=== PATIENT | male | born 1990 | race Caucasian/White ===

== ENCOUNTER 2020-06-16 10:28 | Day surgery (SDC) | payer BC, OTHER ==
[2020-06-12 17:54] VITALS: BMI 28.1
[2020-06-16] MEDS ORDERED: SODIUM CHLORIDE 0.9% P/F 10 ML VIAL IJ ONE ×2 (10:30→10:34)
[2020-06-16] MEDS ORDERED: ceFAZolin SODIUM 1 GM VIAL ONE (10:30)
[2020-06-16] MEDS ORDERED: DEXAMETHASONE SOD PHOSPHATE 4 MG/1 ML VIAL ONE (10:30)
[2020-06-16] MEDS ORDERED: PROPOFOL 20 ML ONE ×2 (10:30)
[2020-06-16] MEDS ORDERED: ROCURONIUM BROMIDE 50 MG/5 ML VIAL ONE (10:31)
[2020-06-16] MEDS ORDERED: LIDOCAINE HCL/PF 2% SDV 5ML VIAL ONE (10:31)
[2020-06-16] MEDS ORDERED: TRANEXAMIC ACID 1000 MG/10 ML VIAL ONE (11:08)
[2020-06-16] MEDS ORDERED: ROPIVACAINE HCL 0.5% 30ML VIAL ONE (11:08)
[2020-06-16] MEDS ORDERED: fentaNYL CITRATE 250 MCG/5 ML VIAL ONE (11:12)
[2020-06-16] MEDS ORDERED: MIDAZOLAM HCL 2 MG/2 ML SINGLE DOSE VIAL ONE ×3 (11:12→15:20)
[2020-06-16] MEDS ORDERED: VANCOMYCIN 1,000 MG VIAL (RESTRICTED TO ID ONLY) ONE (11:14)
[2020-06-16] MEDS ORDERED: ACETAMINOPHEN INJECTION 100 ML IVPB ONE (11:21)
--- NOTE | 2020-06-16 11:26 | HP ---
History & Physical Update - History History: No Change - Physical Physical: No Change - Assessment Assessment: No Change - Plan Plan: No Change
[2020-06-16] MEDS ORDERED: oxyCODONE HCL 5 MG TABLET PO PRN ×2 (11:36)
[2020-06-16] MEDS ORDERED: ONDANSETRON 4 MG/2 ML VIAL IVPUSH PRN (11:36)
[2020-06-16] MEDS ORDERED: LACTATED RINGERS SOLUTION 1,000 ML IV SCH (11:45)
[2020-06-16] MEDS ORDERED: KETAMINE HCL 200 MG/20 ML VIAL ONE (11:54)
[2020-06-16] MEDS ORDERED: ROCURONIUM BROMIDE 50 MG/5 ML SYRINGE ONE ×2 (13:15→14:19)
[2020-06-16] MEDS ORDERED: ONDANSETRON 4 MG/2 ML VIAL ONE (14:16)
[2020-06-16] MEDS ORDERED: NEOSTIGMINE METHYLSULFATE 0.5 MG/ML - 10 ML MDV ONE (14:16)
[2020-06-16] MEDS ORDERED: GLYCOPYRROLATE 0.2 MG/1 ML VIAL ONE ×3 (14:16→15:56)
[2020-06-16] MEDS ORDERED: KETOROLAC TROMETHAMINE 30 MG/1 ML VIAL ONE (14:16)
[2020-06-16] MEDS ORDERED: TRANEXAMIC ACID 1000 MG/10 ML VIAL IVPB ONE (15:23)
[2020-06-16] MEDS ORDERED: traMADol HCL 50 MG TABLET PO PRN ×2 (16:33→16:40)
--- NOTE | 2020-06-16 16:41 | OPR ---
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 Surgeon: Aquiles Odom DO Assistants: Alexander Puri DO Anesthesia: General Anesthesia and Local infiltration analgesic with Ropivicaine: suprascapular nerve, axillary nerve, local superficial field Estimated Blood Loss: 50 mL Drains: None Total IV Fluids: Per anesthesia record Specimens: None Implants: (2) 4.0mm cannulated partially threaded screws ([employer]) Complications: None Disposition: PACU Condition: Hemodynamically stable Indications: Neto Crenshaw presented to us with chronic right shoulder pain and instability that failed conservative measures and two prior instability procedures, including an arthroscopic Bankart repair and open shoulder stabilization procedure. His symptoms, signs, and imaging were consistent with the above noted diagnoses. He ultimately elected to proceed with surgical intervention after discussion of the risks, benefits, alternatives. Given his two prior failed instability surgeries we agreed to proceed with a revision open stabilization with coracoid bone transfer. We discussed risks including but not limited to, bleeding, pain, infection, scarring, damage to neurovascular structures, blood clots, pulmonary embolus, need for additional surgery, incomplete relief of pain, and incomplete return of function. He expressed understanding and wished to proceed. He underwent preoperative medical evaluation clearance and optimization prior to surgery. Procedure Details: He was identified in the preoperative area. The left shoulder was marked as the operative site and consent was completed and confirmed. He was later transferred to the operating room and placed in supine position the operating room. Anesthesia was induced without difficulty. She was repositioned into beach chair with all bony prominences appropriately padded. The neck was in neutral alignment. The upper extremity was prepped and draped in standard sterile fashion. A surgical time-out was performed identifying the correct patient, procedure, and site. Antibiotics were given within 1 hour prior to surgical incision. When began the procedure with incision from the inferior tip of the coracoid approximately 8 cm inferior towards the axillary fold. Sharp dissection was carried out through the subcutaneous tissues. Self-retaining retractors were placed. Subcutaneous flaps were developed. Deltopectoral interval was identified and cephalic vein was also identified, protected, and mobilized laterally. Dense scar tissue and adhesions were encountered deep to this layer. We developed a subdeltoid and subpectoral space, here we identified the coracoid process. Placed retractors superiorly. We divided the clavipectoral fascia lateral to the conjoint tendon and identified the CA ligament. Once self- retaining retractors were placed, we externally rotated the arm visualizing the coracoacromial ligament. We divided this approximately 1 cm from its lateral insertion onto the coracoid. We also divided the coracohumeral ligament inferiorly heading towards the lateral aspect of the coracoid. We then internally rotated the arm and turned our attention to the medial aspect of the coracoid. The pectoralis minor was sharply tenotomized subperiosteally off the medial aspect of the coracoid. We did not extend our incision medial to the tip of the coracoid not to disrupt the vascular supply to the coracoid bone graft. We worked our way along the medial aspect of the coracoid and inferiorly clearing the tissue using a blunt retractor and electrocautery. We found the bend of the coracoid as it turned into the scapular body. We placed a retractor medially to protect the medial structures as well as laterally. We used a curved angle blade 90 degrees to begin our coracoid osteotomy. This began our cut as we cut from medial to lateral and protected the inferior medial structures. We then completed the cut with a curved half-inch osteotome. Sharp edges were then resected with rongeur. We gained control of the coracoid bone block, released the coracohumeral ligament and remaining rotator cuff interval tissue from the lateral aspect of the coracoid and gently divided the tissue inferiorly. We now had obtained both the conjoint tendon as well as the coracoid bone for later transfer into the anterior-inferior scapular neck. We placed this aside under the pectoralis major and turned our attention to exposure of the anterior-inferior glenoid. With self-retaining retractors in place, we externally rotated the arm bringing the subscapularis muscle into view. Dense scar tissue and adhesions were encountered and sutures from his previous subscapularis tenotomy were identified and noted to be intact. We removed the bursal tissue over the subscapularis tendon and divided the subscapularis inline with the muscle fibers at its approximate midpoint through natural raphe. Curved Parra scissor was used to do this and was done sharply extending laterally into the lesser tuberosity insertion. We identified the underlying capsular tissue and dissected the muscular tissue above this and away from capsular tissue. We used a lap sponge and pushed it into the space above the capsule underneath the subscapularis muscle developing a pocket space in front of the anterior glenoid and scapular neck. We then placed anterior glenoid retractor here and blunt Hohmann inferiorly underneath the glenoid. We were able to palpate the axillary nerve and protect it throughout the case. Superior retraction was achieved with appendiceal retractor. We were then able to visualize the anterior capsular tissue that was clearly lax. We used a 15 blade to make a vertical transection of the anterior capsule. We identified the lateral leaflet for later plication. We inserted a Fukuda retractor to retract the humeral head laterally. We resected the anterior-inferior aspect of the capsule with electrocautery as well as prior sutures and suture material. Here we identified an anterior-inferior glenoid bony defect of approximately 20% of the glenoid face that was impacted and crushed in more medially in the anterior scapular neck. We used tanya to freshen the surface of the anterior scapular neck in preparation for receiving the bone graft. We returned our attention to preparation of the coracoid bone graft. Its undersurface was then flattened with the oscillating saw so there was a nice flat bony bed for fixation against the anterior scapular neck. We used a 2.7 drill from a 4-0 cannulated [employer] set and drilled 2 holes through the coracoid bone graft approximately 1 cm apart. The holes were identified with electrocautery on its superior surface and we selected a 34 mm partially threaded screw and placed this through the inferior screw hole. We then used the same drill to drill across the scapular neck as parallel as possible to the glenoid face inferiorly where we felt appropriate position of the graft would be. We again measured this and found a 34 mm screw to be appropriate. The gr aft was then passed through the subscapularis split and inferiorly into the anterior scapular neck. The screw was tightened down and then we used a 2.7 mm drill again in the superior screw through the bone graft through the scapular neck again as parallel as possible to the glenoid face. This screw measured 34 mm and another partially threaded 4-0 cannulated screw was placed through the bone graft into the scapular neck with good fixation. These were tightened down with 2 finger tightness. This achieved excellent fixation of our bone graft as well as fixed our muscle tendon transfer through the subscapularis into the anterior scapular neck. It was flushed with the glenoid face and did not extend prominently. We turned our attention to capsular plication, taking the lateral leaflet of the capsule, bringing it anterosuperiorly and suturing this into the previously cut CA ligament on the lateral aspect of the coracoid bone transfer. This achieved excellent recreation of the anterior capsular tissues. We then closed the subscapularis split laterally with #2 Fiberwire interrupted [id number] stitches. There was excellent fixation of both the bone graft and the tendon inferiorly. The shoulder was stable. There was no undue tension on the brachial plexus or nerves. We closed the wound in a layered fashion. The deltopectoral interval was closed with running #1 Ethibond stitch followed by buried 0 and 2-0 Vicryl deep tissues in an interrupted fashion. We then closed the skin with 3-0 Monocryl and Dermabond. The shoulder was sterilely dressed and the arm was placed in a shoulder immobilizer. A 22 modifier is being requested for this case as it was significantly more difficult case than standard anterior capsulorrhaphy with coracoid bone transfer and conjoint tendon transfer. Description of increased surgical complexity: This instability case was particularly difficult, technically challenging, and time- consuming due to the revision nature of the procedure. Given additional complexity due to the adhesions to the glenoid and subscapularis, and the poor quality of the tissue, additional time was needed for mobilization and repair techniques. I would estimate this is approximately 2 times as difficult, time- consuming, and technically demanding than typical shoulder instability cases. This is being documented for insurance purposes only and reflects no inherent difficulties with this case whatsoever. Attestation for first breaker feeder: Dr. Alexander Puri acted as the first breaker feeder. There was no qualified resident or physician unit assistant available to do so. Post-operative Details: I spoke with the family and patient regarding the operation after surgery. Postoperative examination showed a normal neurovascular exam. Postoperative rehabilitation: [facility]arjet Protocol. He will remain in a shoulder immobilizer for 3-4 weeks. Early passive range of motion okay with limit of forward elevation 90 and external rotation 30 and advance as tolerated.
[2020-06-16 17:35] VITALS: PULSE 77; TEMP 98.2
[2020-06-16 17:53] VITALS: BP 108/64
== END 2020-06-16 18:01 | disposition home or self-care (01) ==
LOC: FASU 10:28
PROVIDERS: ATTEND Orthopaedic Surgery
PROC: 0RQJ0ZZ Repair Right Shoulder Joint, Open Approach (ICD-10-PCS; principal; 2020-06-16 13:12)
DX: M25.311 Other instability, right shoulder (principal)
CPT/HCPCS: 73030-TC-RT-FY; 94760; J0131

== ENCOUNTER 2021-10-12 04:23 | Day surgery (SDC) | payer OTHER ==
[2021-09-27 09:00] VITALS: BMI 29.6
[~2021-10-12 04:23] MED LIST: BUPIVACAINE HCL/PF 0.75% 10 ML VIAL NR ONE; IOHEXOL 180 MG/1 ML ML IJ ONE
[2021-10-12] MEDS ORDERED: LIDOCAINE HCL/PF 1% SDV 5ML VIAL ONE (07:13)
[2021-10-12] MEDS ORDERED: BUPIVACAINE HCL/PF 0.25% (2.5MG/ML) 10 ML VIAL ONE (07:13)
[2021-10-12] MEDS ORDERED: DEXAMETHASONE SOD PHOSPHATE 10 MG/1 ML VIAL ONE (07:13)
[2021-10-12] MEDS ORDERED: BUPIVACAINE HCL/PF 0.5% (5MG/ML) 10 ML VIAL ONE (07:13)
[2021-10-12] MEDS ORDERED: BUPIVACAINE HCL/PF 0.75% 10 ML VIAL ONE (07:14)
[2021-10-12] MEDS ORDERED: LIDOCAINE HCL/PF 2% SDV 5ML VIAL ONE (07:25)
[2021-10-12] MEDS ORDERED: SODIUM CHLORIDE 0.9% P/F 10 ML VIAL IJ ONE (07:25)
[2021-10-12] MEDS ORDERED: LIDOCAINE 1% P/F 10 MG/ML VIAL INF ONE (08:50)
[2021-10-12 09:19] VITALS: BP 112/79; PULSE 72; TEMP 98.1
== END 2021-10-12 09:40 | disposition home or self-care (01) ==
LOC: JASU-SURG 04:23
PROVIDERS: ATTEND Pain Medicine Pain Medicine
PROC: BR16YZZ Fluoroscopy of Lumbar Facet Joint(s) using Other Contrast (ICD-10-PCS; 2021-10-12)
PROC: 3E0T3BZ Introduction of Anesthetic Agent into Peripheral Nerves and Plexi, Percutaneous Approach (ICD-10-PCS; principal; 2021-10-12 08:30)
DX: M47.816 Spondylosis without myelopathy or radiculopathy, lumbar region (principal)
CPT/HCPCS: 76000-TC-FY; J1100

== ENCOUNTER 2022-10-19 14:42 | Inpatient (IN) | payer OTHER ==
[2022-10-19] MEDS ORDERED: DALBAVANCIN HCL 1,500 MG in DEXTROSE 5%-WATER - 500 ML IVPB ONE (20:21)
[2022-10-19] MEDS ORDERED: DALBAVANCIN HCL 500 MG VIAL (RESTRICTED TO ID ONLY) IVPB ONE (21:25)
[2022-10-19 22:18] LABS: BASO % 0.7 % (0-2.0); EOS % 4.5 % (0-4.5); HEMATOCRIT 33.2 % (35.4-49); HEMOGLOBIN 11.1 GM/dL (11.7-16.9); LYMPH % 19.3 % (8-40); MCH 28.1 pg (25.7-33.7); MCHC 33.4 g/dl (32.0-35.9); MEAN CELL VOLUME 84.1 fl (80-96); NEUT % 63.5 % (42.8-82.8); PLATELET COUNT 297 10^3/uL (134-434); RBC 3.95 M/mm3 (4.00-5.60); RDW 13.5 % (11.9-15.9); WHITE BLOOD COUNT 7.3 K/mm3 (4.0-10.0)
[2022-10-19 22:19] LABS: INR 1.47 (0.83-1.09)
[2022-10-19 22:32] LABS: CALCIUM 9.1 mg/dL (8.5-10.1)
[2022-10-19 22:33] LABS: ALBUMIN 3.4 g/dl (3.4-5.0); BLOOD UREA NITROGEN 9.8 mg/dL (7-18)
[2022-10-19 22:36] LABS: CREATININE 0.8 mg/dL (0.55-1.3)
[2022-10-19 22:38] LABS: BILIRUBIN,TOTAL 0.2 mg/dL (0.2-1)
[2022-10-19 23:06] LABS: ERYTHROCYTE SEDIMENTATION RATE 67 mm/hr (0-10)
[2022-10-20] MEDS ORDERED: ACETAMINOPHEN 325 MG TABLET (FP) PO PRN (04:47)
[2022-10-20] MEDS ORDERED: ENOXAPARIN NA (PORCINE) 40 MG/0.4 ML DISP.SYRIN SQ ONE (10:56)
[2022-10-20] MEDS: ENOXAPARIN NA (PORCINE) 40 MG/0.4 ML DISP.SYRIN SQ SCH (11:00)
[2022-10-21] MEDS ORDERED: ENOXAPARIN NA (PORCINE) 40 MG/0.4 ML DISP.SYRIN SQ ONE (09:18)
[2022-10-21 09:25] LABS: BASO % 0.6 % (0-2.0); EOS % 3.1 % (0-4.5); HEMATOCRIT 35.2 % (35.4-49); HEMOGLOBIN 11.5 GM/dL (11.7-16.9); LYMPH % 24.3 % (8-40); MCH 27.8 pg (25.7-33.7); MCHC 32.8 g/dl (32.0-35.9); MEAN CELL VOLUME 84.7 fl (80-96); MEAN PLT VOLUME 6.8 fl (7.5-11.1); MONO % 14.2 % (3.8-10.2); NEUT % 57.8 % (42.8-82.8); PLATELET COUNT 324 10^3/uL (134-434); RBC 4.15 M/mm3 (4.00-5.60); RDW 13.7 % (11.9-15.9); WHITE BLOOD COUNT 7.4 K/mm3 (4.0-10.0)
[2022-10-21] MEDS: ENOXAPARIN NA (PORCINE) 40 MG/0.4 ML DISP.SYRIN SQ SCH (09:25)
[2022-10-21 10:04] LABS: BLOOD UREA NITROGEN 7.4 mg/dL (7-18)
[2022-10-21 10:08] LABS: TOT PROT 6.7 g/dl (6.4-8.2)
[2022-10-21 10:09] LABS: BILIRUBIN,TOTAL 1.3 mg/dL (0.2-1)
[2022-10-21] MEDS ORDERED: ACETAMINOPHEN 325 MG TABLET (FP) ONE (11:20)
[2022-10-21 13:31] VITALS: BMI 25.9
[2022-10-21] MEDS: CEFTRIAXONE 1 GM in DEXTROSE 5%-WATER - 50 ML IVPB SCH (16:33)
[2022-10-22] MEDS: NAPROXEN 500 MG TABLET PO PRN (03:44)
[2022-10-22] MEDS: CEFTRIAXONE 1 GM in DEXTROSE 5%-WATER - 50 ML IVPB SCH (09:37)
[2022-10-22] MEDS: ENOXAPARIN NA (PORCINE) 40 MG/0.4 ML DISP.SYRIN SQ SCH (09:37)
[2022-10-22] MEDS: PIPERACILLIN/TAZOB 3.375 GM 3.375 GM in DEXTROSE 5%-WATER - 50 ML IVPB SCH ×2 (15:05→17:18)
[2022-10-23] MEDS: PIPERACILLIN/TAZOB 3.375 GM 3.375 GM in DEXTROSE 5%-WATER - 50 ML IVPB SCH ×5 (02:10→22:58)
[2022-10-23] MEDS: ENOXAPARIN NA (PORCINE) 40 MG/0.4 ML DISP.SYRIN SQ SCH (11:15)
[2022-10-23] MEDS: NAPROXEN 500 MG TABLET PO PRN (11:16)
[2022-10-23] MEDS: GABAPENTIN 300 MG CAPSULE PO SCH ×2 (14:07→22:59)
[2022-10-23] MEDS: LEVOTHYROXINE NA 200 MCG TABLET PO SCH (15:29)
[2022-10-23] MEDS: traZODone HCL 100 MG TABLET (FP) PO SCH (22:59)
[2022-10-24] MEDS: PIPERACILLIN/TAZOB 3.375 GM 3.375 GM in DEXTROSE 5%-WATER - 50 ML IVPB SCH ×4 (06:50→22:29)
[2022-10-24] MEDS: ENOXAPARIN NA (PORCINE) 40 MG/0.4 ML DISP.SYRIN SQ SCH (11:14)
[2022-10-24] MEDS: GABAPENTIN 300 MG CAPSULE PO SCH ×2 (11:14→21:32)
[2022-10-24] MEDS: NAPROXEN 500 MG TABLET PO PRN (11:14)
[2022-10-24 11:17] LABS: BASO % 1.3 % (0-2.0); EOS % 10.7 % (0-4.5); HEMATOCRIT 30.3 % (35.4-49); LYMPH % 35.8 % (8-40); MCH 28.4 pg (25.7-33.7); MCHC 33.1 g/dl (32.0-35.9); MEAN CELL VOLUME 85.8 fl (80-96); MEAN PLT VOLUME 6.3 fl (7.5-11.1); MONO % 5.7 % (3.8-10.2); NEUT % 46.5 % (42.8-82.8); PLATELET COUNT 383 10^3/uL (134-434); RBC 3.53 M/mm3 (4.00-5.60); RDW 13.7 % (11.9-15.9); WHITE BLOOD COUNT 6.5 K/mm3 (4.0-10.0)
[2022-10-24] MEDS: LEVOTHYROXINE NA 200 MCG TABLET PO SCH (11:30)
[2022-10-24 11:39] LABS: CALCIUM 8.7 mg/dL (8.5-10.1)
[2022-10-24 11:40] LABS: ALBUMIN 2.9 g/dl (3.4-5.0); BLOOD UREA NITROGEN 10.3 mg/dL (7-18)
[2022-10-24 11:43] LABS: CREATININE 0.9 mg/dL (0.55-1.3)
[2022-10-24 11:45] LABS: BILIRUBIN,TOTAL 0.6 mg/dL (0.2-1); TOT PROT 6.4 g/dl (6.4-8.2)
[2022-10-24] MEDS: traZODone HCL 100 MG TABLET (FP) PO SCH (21:32)
[2022-10-25] MEDS: PIPERACILLIN/TAZOB 3.375 GM 3.375 GM in DEXTROSE 5%-WATER - 50 ML IVPB SCH ×3 (06:45→23:37)
[2022-10-25] MEDS: LEVOTHYROXINE NA 100 MCG TABLET (FP) PO SCH (06:45)
[2022-10-25 07:07] LABS: COCAINE QUALITATIVE URINE Positive ng/mL (Cutoff=300); MARIJUANA QL URINE CANNABINOID Negative ng/mL (Cutoff=50); METHADONE,QUALITATIVE URINE Negative ng/mL (Cutoff=300); OPIATES QL URINE Positive ng/mL (Cutoff=300); PHENCYCLIDINE,QUAL URINE Negative ng/mL (Cutoff=25); PROPOXYPHENE QL URINE Negative ng/mL (Cutoff=300); URINE AMPHETAMINES Negative ng/mL (Cutoff=1000)
[2022-10-25] MEDS: ENOXAPARIN NA (PORCINE) 40 MG/0.4 ML DISP.SYRIN SQ SCH (09:58)
[2022-10-25] MEDS: GABAPENTIN 300 MG CAPSULE PO SCH ×2 (09:58→22:26)
[2022-10-25 10:36] LABS: EOS % 8.1 % (0-4.5); HEMATOCRIT 31.7 % (35.4-49); HEMOGLOBIN 10.8 GM/dL (11.7-16.9); LYMPH % 29.6 % (8-40); MCH 28.8 pg (25.7-33.7); MEAN CELL VOLUME 84.8 fl (80-96); MEAN PLT VOLUME 6.2 fl (7.5-11.1); MONO % 6.4 % (3.8-10.2); NEUT % 54.9 % (42.8-82.8); PLATELET COUNT 365 10^3/uL (134-434); RBC 3.74 M/mm3 (4.00-5.60); RDW 13.8 % (11.9-15.9); WHITE BLOOD COUNT 5.8 K/mm3 (4.0-10.0)
[2022-10-25 11:12] LABS: BLOOD UREA NITROGEN 11.6 mg/dL (7-18); CALCIUM 8.9 mg/dL (8.5-10.1)
[2022-10-25 11:16] LABS: CREATININE 0.8 mg/dL (0.55-1.3)
[2022-10-25] MEDS: traZODone HCL 100 MG TABLET (FP) PO SCH (22:26)
[2022-10-26 01:03] VITALS: RESP 20
[2022-10-26] MEDS: LEVOTHYROXINE NA 100 MCG TABLET (FP) PO SCH (06:36)
[2022-10-26] MEDS: PIPERACILLIN/TAZOB 3.375 GM 3.375 GM in DEXTROSE 5%-WATER - 50 ML IVPB SCH (06:37)
[2022-10-26 07:04] VITALS: BP 99/62; PULSE 57; TEMP 97.6
[2022-10-26 11:04] LABS: HEMATOCRIT 33.1 % (35.4-49); HEMOGLOBIN 10.9 GM/dL (11.7-16.9); LYMPH % 27.7 % (8-40); MCHC 32.9 g/dl (32.0-35.9); MEAN PLT VOLUME 6.5 fl (7.5-11.1); MONO % 6.1 % (3.8-10.2); NEUT % 59.2 % (42.8-82.8); PLATELET COUNT 393 10^3/uL (134-434); RDW 13.6 % (11.9-15.9); WHITE BLOOD COUNT 6.1 K/mm3 (4.0-10.0)
[2022-10-26 12:38] LABS: CHLORIDE 108 mmol/L (98-107); SODIUM 146 mmol/L (136-145)
[2022-10-26 12:40] LABS: CALCIUM 8.9 mg/dL (8.5-10.1)
[2022-10-26 12:41] LABS: ANION GAP 6 MMOL/L (8-16); BLOOD UREA NITROGEN 11.2 mg/dL (7-18); CO2 32 mmol/L (21-32); MAGNESIUM 2.3 mg/dL (1.8-2.4)
[2022-10-26 12:42] LABS: GLUCOSE,RANDOM 72 mg/dL (74-106)
[2022-10-26 12:44] LABS: CREATININE 0.9 mg/dL (0.55-1.3); SGOT/AST 25 U/L (15-37); SGPT/ALT 25 U/L (13-61)
[2022-10-26 12:46] LABS: BILIRUBIN,TOTAL < 0.1 mg/dL (0.2-1); TOT PROT 6.6 g/dl (6.4-8.2)
[2022-10-26 12:47] LABS: ALK PHOS 75 U/L (45-117)
[2022-10-26] MEDS: ENOXAPARIN NA (PORCINE) 40 MG/0.4 ML DISP.SYRIN SQ SCH (13:07)
[2022-10-26] MEDS: GABAPENTIN 300 MG CAPSULE PO SCH (13:07)
== END 2022-10-26 12:19 | disposition left against medical advice (07) | DRG 383 ==
LOC: JER 14:42 → JERBED 23:22 → J5S 10-21 12:01
PROVIDERS: ADMIT Internal Medicine; ATTEND Internal Medicine
DX: L03.114 Cellulitis of left upper limb (principal); F11.20 Opioid dependence, uncomplicated; F14.10 Cocaine abuse, uncomplicated; F41.8 Other specified anxiety disorders; L03.113 Cellulitis of right upper limb; E03.9 Hypothyroidism, unspecified; F17.210 Nicotine dependence, cigarettes, uncomplicated
CPT/HCPCS: 0241U-QW; 36415; 73130-TC-LT-FY; 73130-TC-RT-FY; 73502-TC-RT-FY; 80048; 80053; 80307; 83735; 84484; 85025; 85610; 85651; 86140; 87040; 93005; 93010; 99285-25; G0397; J0875

== ENCOUNTER 2022-12-22 20:37 | Inpatient (IN) | payer OTHER ==
[2022-12-22] MEDS ORDERED: SODIUM CHLORIDE 1,000 ML IV ONE (20:55)
[2022-12-22] MEDS ORDERED: PIPERACILLIN/TAZOB 3.375 GM 3.375 GM in DEXTROSE 5%-WATER - 50 ML IVPB ONE (20:56)
[2022-12-22] MEDS ORDERED: VANCOMYCIN 1 GM in D5W (PRE-DOCKED) 1,000 MG/250 ML IVPB ONE (20:57)
[2022-12-22] MEDS ORDERED: PIPERACILLIN/TAZOBACTAM 3.375 GM VIAL IVPB ONE (20:58)
[2022-12-22] MEDS ORDERED: VANCOMYCIN 1,000 MG VIAL (RESTRICTED TO ID ONLY) ONE (20:58)
[2022-12-22 21:13] LABS: HEMATOCRIT 32.4 % (35.4-49); HEMOGLOBIN 11.3 G/dL (11.7-16.9); MCH 30.2 pg (25.7-33.7); MEAN CELL VOLUME 86.3 fl (80-96); MEAN PLT VOLUME 6.8 fl (7.5-11.1); PLATELET COUNT 344.3 10^3/uL (134-434); RBC 3.75 10^6/uL (4.00-5.60); RDW 14.7 % (11.9-15.9); WHITE BLOOD COUNT 6.9 10^3/uL (4.0-10.8)
[2022-12-22 21:30] LABS: ALBUMIN 3.7 g/dl (3.4-5.0); BILIRUBIN,TOTAL 0.6 mg/dl (0.2-1); CREATININE 0.7 mg/dl (0.55-1.3); TOT PROT 6.9 g/dl (6.4-8.2)
[2022-12-22 21:34] LABS: CALCIUM 8.8 mg/dl (8.5-10)
[2022-12-23 01:32] VITALS: BMI 32.0
[2022-12-23] MEDS ORDERED: PIPERACILLIN/TAZOB 4.5 GM 4.5 GM in DEXTROSE 5%-WATER 100 ML IVPB SCH (04:15)
[2022-12-23] MEDS: SODIUM CHLORIDE 1,000 ML IV SCH (05:00)
[2022-12-23] MEDS ORDERED: NALOXONE HCL 0.4 MG/ML VIAL IVPUSH PRN (07:37)
[2022-12-23] MEDS: LEVOTHYROXINE NA 100 MCG TABLET (FP) PO SCH (08:35)
[2022-12-23 09:15] LABS: BASO % 0.8 % (0-2.0); EOS % 8.2 % (0-4.5); HEMATOCRIT 29.1 % (35.4-49); HEMOGLOBIN 9.7 GM/dL (11.7-16.9); LYMPH % 27.1 % (8-40); MCH 28.6 pg (25.7-33.7); MCHC 33.2 g/dl (32.0-35.9); MEAN PLT VOLUME 6.7 fl (7.5-11.1); NEUT % 56.9 % (42.8-82.8); PLATELET COUNT 303 10^3/uL (134-434); RBC 3.39 M/mm3 (4.00-5.60); RDW 14.6 % (11.9-15.9); WHITE BLOOD COUNT 4.7 K/mm3 (4.0-10.0)
[2022-12-23 09:17] LABS: CALCIUM 8.2 mg/dl (8.5-10); CREATININE 0.6 mg/dl (0.55-1.3)
[2022-12-23 09:23] LABS: METHADONE, UR NEGATIVE (NEGATIVE); OPIATES, URI NEGATIVE (NEGATIVE); URINE AMPHETAMINES NEGATIVE (NEGATIVE); URINE BARBITURATES NEGATIVE (NEGATIVE)
[2022-12-23 09:24] LABS: PHENCYCLIDINE,URINE NEGATIVE (NEGATIVE)
[2022-12-23] MEDS: VANCOMYCIN/WATER 1250 MG 1,250 MG/250 ML BAG IVPB SCH ×2 (09:56→21:42)
[2022-12-23 10:06] LABS: COCAINE, UR POSITIVE (NEGATIVE); URINE BENZODIAZEPINES POSITIVE (NEGATIVE)
[2022-12-23] MEDS: BACITRACIN ZINC 15 GM TUBE TOPICAL OINTMENT TP SCH (11:55)
[2022-12-23] MEDS: PIPERACILLIN/TAZOB 3.375 GM 3.375 GM in DEXTROSE 5%-WATER - 50 ML IVPB SCH (17:58)
[2022-12-23] MEDS: ACETAMINOPHEN 500 MG TABLET (FP) PO PRN (18:13)
[2022-12-23] MEDS ORDERED: VANCOMYCIN/WATER 1250 MG 1,250 MG/250 ML BAG IVPB SCH (22:00)
[2022-12-24] MEDS: PIPERACILLIN/TAZOB 3.375 GM 3.375 GM in DEXTROSE 5%-WATER - 50 ML IVPB SCH ×3 (02:45→17:34)
[2022-12-24] MEDS: LEVOTHYROXINE NA 100 MCG TABLET (FP) PO SCH (06:27)
[2022-12-24 08:34] LABS: CREATININE 0.6 mg/dl (0.55-1.3); MAGNESIUM 1.8 mg/dL (1.8-2.4); PHOSPHOROUS 2.9 mg/dl (2.5-4.9)
[2022-12-24 08:51] LABS: CALCIUM 8.1 mg/dl (8.5-10)
[2022-12-24 09:27] LABS: BASO % 0.9 % (0-2.0); EOS % 3.2 % (0-4.5); HEMATOCRIT 28.4 % (35.4-49); HEMOGLOBIN 9.5 GM/dL (11.7-16.9); LYMPH % 12.2 % (8-40); MCH 28.5 pg (25.7-33.7); MCHC 33.5 g/dl (32.0-35.9); MEAN PLT VOLUME 6.7 fl (7.5-11.1); MONO % 6.8 % (3.8-10.2); NEUT % 76.9 % (42.8-82.8); PLATELET COUNT 265 10^3/uL (134-434); RBC 3.35 M/mm3 (4.00-5.60); RDW 14.1 % (11.9-15.9); WHITE BLOOD COUNT 3.8 K/mm3 (4.0-10.0)
[2022-12-24] MEDS: SODIUM CHLORIDE 1,000 ML IV SCH (09:27)
[2022-12-24] MEDS: BACITRACIN ZINC 15 GM TUBE TOPICAL OINTMENT TP SCH (09:27)
[2022-12-24 12:28] LABS: HIV INTERPRETATION NEGATIVE (NEGATIVE)
[2022-12-24] MEDS: PANTOPRAZOLE 40 MG TABLET PO SCH (12:41)
[2022-12-25] MEDS: PIPERACILLIN/TAZOB 3.375 GM 3.375 GM in DEXTROSE 5%-WATER - 50 ML IVPB SCH ×2 (01:21→09:59)
[2022-12-25 01:50] VITALS: RESP 18
[2022-12-25 05:23] VITALS: BP 113/91; PULSE 75; TEMP 99.8
[2022-12-25] MEDS: LEVOTHYROXINE NA 100 MCG TABLET (FP) PO SCH (06:05)
[2022-12-25] MEDS: SODIUM CHLORIDE 1,000 ML IV SCH (06:05)
[2022-12-25] MEDS: ACETAMINOPHEN 500 MG TABLET (FP) PO PRN (06:08)
[2022-12-25 08:07] LABS: ALBUMIN 2.7 g/dl (3.4-5.0); BILIRUBIN,TOTAL 0.3 mg/dl (0.2-1); CREATININE 0.7 mg/dl (0.55-1.3); TOT PROT 5.2 g/dl (6.4-8.2)
[2022-12-25 09:37] LABS: BASO % 0.8 % (0-2.0); EOS % 2.8 % (0-4.5); HEMATOCRIT 28.5 % (35.4-49); HEMOGLOBIN 9.5 GM/dL (11.7-16.9); LYMPH % 23.9 % (8-40); MCH 28.3 pg (25.7-33.7); MCHC 33.4 g/dl (32.0-35.9); MEAN CELL VOLUME 84.6 fl (80-96); MEAN PLT VOLUME 6.4 fl (7.5-11.1); MONO % 9.3 % (3.8-10.2); NEUT % 63.2 % (42.8-82.8); PLATELET COUNT 269 10^3/uL (134-434); RBC 3.37 M/mm3 (4.00-5.60); RDW 13.9 % (11.9-15.9); WHITE BLOOD COUNT 3.6 K/mm3 (4.0-10.0)
[2022-12-25] MEDS: PANTOPRAZOLE 40 MG TABLET PO SCH (09:59)
[2022-12-25] MEDS: BACITRACIN ZINC 15 GM TUBE TOPICAL OINTMENT TP SCH (10:00)
== END 2022-12-25 12:56 | disposition left against medical advice (07) | DRG 383 ==
LOC: FER 20:37 → FM/S 23:37 → UNDOADMIN 12-23 00:18 → FM/S 12-23 00:18
PROVIDERS: ADMIT Internal Medicine
DX: L03.114 Cellulitis of left upper limb (principal); F11.10 Opioid abuse, uncomplicated; E03.9 Hypothyroidism, unspecified; F14.10 Cocaine abuse, uncomplicated; F17.210 Nicotine dependence, cigarettes, uncomplicated; M79.643 Pain in unspecified hand; R60.0 Localized edema; L03.113 Cellulitis of right upper limb
CPT/HCPCS: 0241U-QW; 36415; 71045-TC-FY; 73200-TC-RT; 80048; 80053; 80307; 82607; 82728; 82747; 83540; 83550; 83735; 84100; 84439; 84443; 85014; 85025; 85027; 85651; 86704; 86803; 87040; 87070; 87186; 87205; 87389; 87517; 93005; 99285-25; G0480